=== PATIENT | female | born 1950 | race Caucasian/White ===

== ENCOUNTER 2025-03-07 14:04 | Outpatient (REF) | payer MEDICARE, MEDICAID, SELFPAY ==
--- OUTSIDE RECORDS SUMMARY | 2025-03-07 14:58 | XMS_ITS | Encounter Summary ---
Author Organization [facility] Address [address] [place] [address] Care Team Providers Care V Belt Skiver Name Role Phone Heather Gallardo MD Primary Care Pr ovider Encounter Details Date Type Department Care Team (Latest Contact Info) Description 03/07/2025 1:29 PM EDT Hospital Encounter XRAY - [place] [address] [place] [address] Right hip pain; Sacroiliac pain; Right lumbar pain Social History Tobacco Use Types Packs/Day Years Used Date Smoking Tobacco: Former Cigarettes Q uit: 07/04/1984 Smokeless Tobacco: Never Alcohol Use Standard Drinks/Week Comments Yes 0 (1 standard drink = 0.6 oz pur e alcohol) Housing Instability Answer Date Recorde d Are you worried that in the next 2 months you may not have stable housing? No 10/15/2024 Food Access & Nutrition Answer Date Rec orded Do you have access to a vari ety of food including fruits and vegetables? Yes 10/15/2024 Health Literacy Answer Date Recorded How often do you need to hav e someone help you when you read instructions, pamphlets, or other written material from your doctor or pharmacy? Patient declined 10/15/2024 Caregiver: How often do you need to have someone help you when you read instructions, pamphlets, or other written material from your doctor or pharmacy? Not on file 024 Financial Risk Answer Date Recorded How hard is it for you to pa y for the very basics like food, housing, medical care, and air conditioning / heating? Patient declined 10/15/2024 Transportation Answer Date Recorded Has the lack of transportati on kept you from meetings, work, or from getting things needed for daily living? No 10/15/2024 Has the lack of transportati on kept you from medical appointments or from getting medications? Patient declined 10/15/2024 Social Isolation Answer Date Recorded How often do you feel lonely or isolated from those around you? Patient declined 10/15/2024 Food Risk Answer Date Recorded Within the past 12 months we worried whether our food would run out before we got money to buy more. Never true 10/15/2024 Within the past 12 months th e food we bought just didn't last and we didn't have money to get more. Never true 10/15/2024 Dependent Care Answer Date Recorded Do you need help finding or paying for care for your loved ones. For example, school child care attendant or elderly care for an older adult? Patient declined 10/15/2024 Education Answer Date Recorded Do you think completing more education or training, like finishing a GED, going to college, or learning a trade, would be helpful for you? Patient declined 10/15/2024 Employment and Income Answer Date Recor ded During the last four weeks, have you been actively looking for work? Patient declined 10/15/2024 Living Situation Answer Date Recorded What is your living situation? 1 12/16/2023 Interpersonal Safety Answer Date Record ed Physical Abuse 01/02/2025 Verbal Abuse 01/02/2025 Comments No Sex and Gender Information Value Date Recorded Sex Assigned at Female 09/11/2024 1:22 PM EST Legal Sex Female 2:46 PM EST Gender Identity Female 09/11/2024 1:22 PM EST Sexual Orientation Straight 09/11/2024 1: 22 PM EST documented as of this encounter Plan of Treatment Upcoming Encounters Date Type Department Care Team (Late st Contact Info) Description 03/28/2025 1:40 PM EDT Office Visit Gastroenterology - [place] [address] [facility] [address] [facility] [address] [place] [id number] Lisette Ash PA [address] [place] [address] 04/08/2025 1:30 PM EDT Consult Vascular Surgery - [place] [address] [place] [address] Jaleesa Bella PA [address] [facility] [address] [place] [address] 01/24/2026 1:00 PM EDT Office Visit Endocrinology [facility] [address] [place] [address] Amy Loyd PA [address] [place] [address] Pending Results Name Type Priority Associated Diagnoses Date /Time XR Lumbar Spine 4+ Views Imaging Routine Right hip pain Sacroiliac pain Right lumbar pain 03/07/2025 1:43 PM EDT Scheduled Orders Name Type Priority Associated Diagnoses Orde r Schedule XR Lumbar Spine 4+ Views Imaging Routine Right hip pain Sacroiliac pain Right lumbar pain Once for 1 Occurrences starting 03/07/2025 until 03/07/2025 documented as of this encounter Visit Diagnoses Diagnosis Right hip pain Pain in joint, pelvic region and thigh Sacroiliac pain Disorders of sacrum Right lumbar pain Lumbago documented in this encounter Additional Health Concerns Assessment Noted Time PHQ-9 Depression Total Score: 0 03/06/20 25 6:34 PM EDT documented as of this encounter Care Teams V Belt Skiver Relationship Specialty Start Date End Date Heather Gallardo MD [address] [place], [place] PCP - General Internal Medicine 05/17/22 documented as of this encounter
--- OUTSIDE RECORDS SUMMARY | 2025-03-07 14:58 | XMS_ITS | Clinical Summary ---
Author Organization [address] [facility] Address [address] [place] [address] Phone Care Team Providers Care Sales Representative [employer] Name Role Phone Heather Martinez MD Primary Care Pr ovider Allergies Active Allergy Reactions Criticality Noted Date Comments Adhesive Wound 02/11/2010 Tape Adhesive Tape-Silicones Unknown 01/29/2025 Balsam [place] Oil Unknown 01/29/2025 Mold Shortness of breath,Wheezing,Heada esthela,Swelling High 10/07/2014 Other Reaction(s): Numbness, tingling or swelling of the lips, tongue or mouth Nickel Itching,Rash 11/04/2016 Nickel/Metal Trace Metals Unknown 01/29/2025 Medications cholecalciferol (VITAMIN D-3) 50 mcg (2,000 unit) capsule Take 1 Capsule by mouth daily. 06/14/20 24 Active dronedarone (Multaq) 400 mg tablet TAKE 1 TABLET BY MOUTH TWICE DAILY WITH THE MORNING AND EVENING MEAL 04/19/20 24 Active atorvastatin (LIPITOR) 20 mg tablet TAKE 2 TABLETS BY MOUTH AT BEDTIME 05/02/20 24 Active albuterol HFA (PROAIR HFA ; PROVENTIL HFA ; VENTOLIN HFA) 90 mcg/actuation inhaler Inhale 2 Puffs into the lungs every 4 hours as needed for Cough, Wheezing or Shortness of Breath. 10/13/20 23 Active pantoprazole (PROTONIX) 40 mg EC tablet Take 1 tablet (40 mg total) by mouth 1 (one) time each day. Do not crush, chew, or split. 90 tablet 3 10/08/20 24 Active metoprolol succinate (TOPROL-XL) 25 mg 24 hr tabletIndications :Paroxysmal atrial fibrillation (CMS/HCC V24, CMS/HCC V28) Take 2 tablets (50 mg total) by mouth 1 (one) time each day. 10/15/20 24 Active furosemide (LASIX) 20 mg tabletIndications :Varicose veins of bilateral lower extremities with other complications Take 1 tablet (20 mg total) by mouth 1 (one) time each day if needed (leg swelling). 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 90 tablet 3 11/03/19 25 Active acetaminophen (TYLENOL) 500 mg tablet Take 2 tablets (1,000 mg total) by mouth every 8 (eight) hours. 30 tablet 01/04/20 25 Active apixaban (ELIQUIS) 2.5 mg tablet Take 1 tablet (2.5 mg total) by mouth 2 (two) times a day. Active semaglutide (Wegovy) 2.4 mg/0.75 mL injection penIndications:Cl ass 2 obesity with body mass index (BMI) of 38.0 to 38.9 in adult, unspecified obesity type, unspecified whether serious comorbidity present INJECT 2.4 MG SUBCUTANEOUSLY ONE TIME PER WEEK 3 mL 3 01/29/20 25 Active methylPREDNISolon e (MEDROL DOSPAK) 4 mg tablet Take as directed on package. 21 tablet 03/07/20 25 025 Active cyclobenzaprine (FLEXERIL) 5 mg tablet Take 1 tablet (5 mg total) by mouth at bedtime as needed for muscle spasms. 30 tablet 03/07/20 25 025 Active senna-docusate (PERICOLACE) 8.6-50 mg per tabletIndications :Constipation, unspecified constipation type Take 1 tablet by mouth 1 (one) time each day for 10 days. 10 each 02/06/20 25 025 Active Problems Problem Noted Date Diagnosed Date Bartholin gland cyst 11/15/2024 Pancreatic cyst 10/15/2024 Overview (10/15/2024): Incidental 0.5 cm cystic lesion of the pancreatic head Other constipation 10/15/2024 Assessment & Plan (10/15/2024 9:40 PM EST): Advised to continue colace and resume senna Orders: senna (SENOKOT) 8.6 mg tablet; Take 1 tablet (8.6 mg total) by mouth at bedtime. Chronic superficial gastritis without bleeding 1 12/16/2023 Assessment & Plan (10/15/2024 9:40 PM EST): Continue pantoprazole 40mg daily Prediabetes 10/15/2024 Assessment & Plan (10/15/2024 9:40 PM EST): Stable. 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 Cardoza describes neck pain and radiation to both arms. It travels from the neck to the trapezius and periscapular region before going into the triceps. Cervical spine x-rays show degenerative changes with bridging osteophytes at C4-5, C5-6, and C6-7. Ms. Cardoza had physical therapy and did not appreciate any relief but she did not have any cervical traction and they did not use a TENS unit. She will try physical therapy again this time with cervical traction and a TENS unit for her occipital neuralgia. She can follow-up with us after the therapy if things do not improve. We will consider an MRI at that time. Assessment & Plan (10/15/2024 9:40 PM EST): She has gabapentin at home. She will try the medication and used the stool softners to help with the constipation Class 2 obesity with body ma ss index (BMI) of 38.0 to 38.9 in adult 01/03/2024 Assessment & Plan (10/15/2024 9:40 PM EST): Continue semaglutdie 2.4mg weekly and follow up with weight management Gallstones 03/23/2023 Overview (08/13/2024): MRI abdomen 03/21/23: Possible cholelithiasis in the contracted gallbladder Assessment & Plan (10/15/2024 9:40 PM EST): We discussed symptoms of symptomatic gallstones/cholecystitis and she is advised to go to the ER if that occurs. For now, she defers evaluation by surgery Vitamin D deficiency 03/02/2023 Assessment & Plan (10/15/2024 9:40 PM EST): Continue vitamin D 2000 U Left lumbar radiculitis 12/10/2021 Overview (08/13/2024): Being followed with [facility] Lichen simplex chronicus 03/05/2021 Overview (08/13/2024): Last Assessment & Plan: Explained could repeat biopsy, but not likely necessary. Will treat with OTC hydrocortisone prn. Avoid irritants. Call if worsening, can consider more potent steroid. Elevated testosterone level 10/26/2019 Calcification of coronary artery 05/01/2019 Anxiety 04/04/2019 Overview (08/13/2024): Last Assessment & Plan: I offered resources, but she currently declines. She will bring up with Dr. Zelaya. 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 She has a plan to leave if necessary and denies fear for her life. She has support. She declines additional services. Ground glass opacity present on imaging of lung 03/21/2019 Paroxysmal atrial fibrillation (CMS/HCC V24, CMS /[facility] V28) 11/16/2018 Assessment & Plan (10/15/2024 9:40 PM EST): Continue Multaq 400mg BID and apixaban 5 mg twice daily Continue follow up with [facility] cardiology . Echo was done in January, EF 60 to 65% Varicose veins of bilateral lower extremities with other complications 09/01/2018 Assessment & Plan (10/15/2024 9:40 PM EST): Advised to use use lasix daily as needed more consistently for the leg swelling Will like treatment and is referred to Vascular Surgery Orders: furosemide (LASIX) 20 mg tablet; Take 1 tablet (20 mg total) by mouth 1 (one) time each day if needed (leg swelling). Ambulatory referral to Vascular Surgery; Future Obstructive sleep apnea 07/17/2018 Overview (08/13/2024): mild AHI 9 with sleep related hypoxia SMS Home Polysomnogram: Date 07/11/2018; AHI 9, Unclassified apneas 0; Obstructive apneas 7; Central apneas 0; Mixed apneas 0; hypopneas 63; average oxygen saturation 90% (lowest 82% with saturations <88% for 5% or more of study) [facility] Polysomnogram treatment study. Date . SE 50 % SM 58 %; spent 14 % of the study in REM. On CPAP @ 10; RDI 1.7 (AHI 1.7), Central apneas 1; Obstructive apneas 0; Mixed apneas 0; hypopneas 3; RERAs 0; and, average oxygen saturation was 93%. For the entire study, PLMs ~180. - Obstructive Sleep Apnea - mild; mostly hypopneas; with sleep related hypoventilation by 2018 home polysomnogram. Tx study. Assessment & Plan (10/15/2024 9:40 PM EST): Advised to use CPAP nightly to prevent adverse consequences of uncontrolled ROSALVA. She will use this with her dehumidifier Pruritus ani 10/04/2017 External hemorrhoids with complication 7 Hyperlipidemia 10/14/2014 Assessment & Plan (10/15/2024 9:40 PM EST): Stable. continue atorvastatin 40 mg nightly. 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 Gramajo - at [facility] Assessment & Plan (10/15/2024 9:40 PM EST): Continue levothyroxine 88mcg daily Enlarged thyroid 07/04/2013 Assessment & Plan (10/15/2024 9:40 PM EST): Orders: US Head Neck Soft Tissue; Future PHN (postherpetic neuralgia) 09/09/2011 Neck pain 04/07/2011 Occipital neuralgia 04/07/2011 Overview (08/13/2024): Last Assessment & Plan: Ms. Cardoza describes a long history of right sided occipital headaches radiating over the top of her head into the right eye. I was able to reproduce her pain with palpation of the right skull base. She would like to go for an occipital nerve block. I also gave her a prescripion for physical therapy incluiing crvical traction. She will follow up wih us afterward if she's not improving. Degenerative arthritis of cervical spine 011 Lumbago 07/15/2010 Sacroiliac pain 07/15/2010 Hip pain 02/11/2010 Knee pain 02/11/2010 Overview (08/13/2024): Seeing Dr. 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 stable Orders: Basic metabolic panel; Future Resolved Problems Problem Noted Date Diagnosed Date Resolved Date Complex renal cyst 03/23/2023 Overview (08/13/2024): MRI abdomen 03/21/23: CONCLUSIONS: Lesion of concern in the midpole of the right kidney probably represent mildly complex cyst with some proteinaceous contents and septation. It could be followed ultrasonographically in 3/6 months. Additional cysts in the right kidney. Elevated bilirubin 05/17/2022 H pylori ulcer 10/26/2019 10/15/2024 Morbid obesity with BMI of 4 0.0-44.9, adult ([facility] V24, [facility] V28) 04/04/2019 10/15/2024 Encounters Date Type Department Care Team Description 03/07/2025 1:29 PM EDT Hospital Encounter [address] [phone] Right hip pain; Sacroiliac pain; Right lumbar pain 03/07/2025 1:28 PM EDT Hospital Encounter [address] [phone] Right hip pain; Sacroiliac pain; Right lumbar pain 03/07/2025 1:00 PM EDT Office Visit Adult Medicine [address] [phone] Shivani Jain PA Right hip pain (Primary Dx); Sacroiliac pain; Right lumbar pain 03/06/2025 Nurse Triage Adult [address] [phone] Rachel Aguilar RN 03/06/2025 Nurse Triage Adult Medicine [address] [phone] Heather Martinez MD 02/05/[address] [phone] Kaz Soler MD Med Refill 01/29/2025 11:30 AM EDT Office Visit [address] [phone] Kaz Soler MD Vaginal discharge (Primary Dx); Vaginal odor; Postop check 01/29/2025 Telephone Adult Medicine [address] [phone] Heather Martinez MD 01/28/[address] [phone] Bina Morales, pasteurizing machine operator Only 01/24/2025 1:30 PM EDT Consult Endocrinology [address] [phone] Amy Loyd PA 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 [41501 (CPT??)] 01/02/2025 6:54 AM EST - 01/03/2025 2:23 PM EST Hospital Encounter [facility] [address] [place] [phone] Kaz Soler MD Bartholin gland cyst Discharge Disposition: Home or Self Care 12/10/2024 11:00 AM EST Office Visit Bariatric Surgery - [place] [address] [place] [phone] Amaury Gomez MD Class 2 obesity with body mass index (BMI) of 38.0 to 38.9 in adult, unspecified obesity type, unspecified whether serious comorbidity present from Last 3 Months Immunizations Name Administration Dates Next Due COVID-19 Seasonal (Novavax) 12yo and older 07/31/2024 Hepatitis B (Oocvwhk-D-Hajpr , Recombivax HB-Adult) 19yo and older 11/15/2001,05/11/2001 Influenza Quadravalent, 0.5m l (Fluad) 65yo and older 10/01/2024 Influenza Quadravalent, 0.5m l (Fluzone High-dose) 65yo and older 08/17/2023 Influenza trivalent, 0.5mL ( Fluad) 65yo and older 07/19/2022,09/30/2021,07/25/2020,08/19,08/31/2018,08/05/2017 Influenza trivalent, 0.5mL, preservative free (Fluarix; FluLaval; Fluzone) ages 6mo and older (Afluria) 3 years and older 08/29/2015 Influenza trivalent, with pr eservative (Fluzone; Afluria) 6mo and older 08/21/2019 Influenza, Unspecified 09/01/2023 PPD Test 04/01/2001 Pneumococcal conjugate 13 va lent (Prevnar 13, PCV13) 2mo and older 07/25/2020 Pneumococcal conjugate 20 va lent (Prevnar 20, PCV 20) 2mo and older 04/19/2023 Pneumococcal polysaccharide 23 valent (Pneumovax 23) 2yo and older 08/21/2013 Td Tetanus diptheria (Tdvax) 7yo and older 05/01/2019 Tdap Tetanus diptheria acell ular pertussis (Boostrix; Adacel) 7yo and older 07/27/2013 Surgical History Surgery Date Site/Laterality Comments ROTATOR CUFF REPAIR 10/31/1999 PROCEDURE: HISTORICAL ROTATOR CUFF REPAIR; COMMENT: roxy 2012Dr. Huggins APPENDECTOMY 10/31/1962 PROCEDURE: ND APPENDECTOMY TONSILLECTOMY 10/31/1965 PROCEDURE: HISTORICAL TONSILLECTOMY OTHER SURGICAL HISTORY 10/31/2003 PROCEDURE: CATHETER, ABLATION BREAST BIOPSY Left PROCEDURE: BX BREAST; PERC NEEDLE CORE W/IMAG GUID; COMMENT: b9 OTHER SURGICAL HISTORY 01/29/2016 PROCEDURE: HISTORICAL VULVA SURGERY; COMMENT: Exam under anesthesia and right vulvar hematoma evacuation at [facility] by Dr. Katina Maradiaga OTHER SURGICAL HISTORY 09/29/2018 PROCEDURE: HISTORICAL VULVA SURGERY; COMMENT: Exam under anesthesia, removal of right vaginal cyst and vulvar biopsy at [facility]. OTHER SURGICAL HISTORY 05/12/2020 PROCEDURE: HISTORICAL VULVA SURGERY; COMMENT: Excision of left multilobular vaginal cyst and hematoma ayt [facility] by Dr. Pura Yung. OTHER SURGICAL HISTORY 2014 PROCEDURE: ND REPAIR RECTOCELE SEPARATE PROCEDURE; COMMENT: Rectocele repair at [facility] by Dr. Dixon Vizcaino ABLATION OF DYSRHYTHMIC FOCUS BARTHOLIN GLAND CYST EXCISION 01/02/2025 Right Excision of right Bartholin's gland and mass. Medical History Medical History Date Comments Atrial fibrillation ([facility] V24, [facility] V28) DX:Atrial fibrillation (HCC) ; COMMENT: Dr. Nassar/ [facility] Sleep apnea DX:Sleep apnea Ground glass opacity present on imaging of lung 06/09/2020 DX:Ground glass opacity pres ent on imaging of lung; COMMENT: Being monitored by pulm Elevated bilirubin 05/17/2022 DX:Elevated b ilirubin Complex renal cyst 03/23/2023 MRI abdomen : CONCLUSIONS: Lesion of concern in the midpole of the right kidney probably represent mildly complex cyst with some proteinaceous contents and septation. It could be followed ultrasonographically in 3/6 months. Additional cysts in the right kidney. H pylori ulcer 10/26/2019 Morbid obesity with BMI of 40.0-44.9, adult ([facility] V24, [facility] V28) 04/04/2019 PONV (postoperative nausea a nd vomiting) Hypothyroidism Family History Medical History Relation Name Comments Lung cancer Father Breast cancer Neg Hx Colon cancer Neg Hx Ovarian cancer Neg Hx Relation Name Status Comments Brother Diabetes Father (Age 70) Lung Ca, C OPD, smoker Maternal Grandmother [place], str madelyn x3 Mother Alive Sister Diabetes Social History Tobacco Use Types Packs/Day Years Used Date Smoking Tobacco: Former Cigarettes Q uit: 07/04/1984 Smokeless Tobacco: Never Tobacco Cessation:Counseling Given: Not Answered Alcohol Use Standard Drinks/Week Comments Yes 0 [...] care for your loved ones. For example, child study team director or elderly care for an older adult? [...] Orientation Straight 09/11/2024 1: 22 PM EST Obstetrics History Last Filed Vital Signs Vital Sign Reading Time Taken Comments Blood Pressure 130/74 03/07/2025 1:03 PM EDT Pulse 78 03/07/2025 1:03 PM EDT Temperature 36.9 ??C (98.4 ??F) 03/07/2025 1:03 PM ED T Respiratory Rate 18 03/07/2025 1:03 PM EDT Oxygen Saturation 98% 01/24/2025 1:27 PM EDT Inhaled Oxygen Concentration - - Weight 105 kg (231 lb) 03/07/2025 1:03 PM EDT Height 165.1 cm (5' 5 ) 03/07/2025 1:03 PM EDT Body Mass Index 38.44 03/07/2025 1:03 PM EDT Plan of Treatment Upcoming Encounters Date Type Department Care Team (Late st Contact Info) Description 03/28/2025 1:40 PM EDT Office Visit Gastroenterology - [place] 175 [facility] [address] [facility] [address] [place] [phone] Lisette Ash PA [address] [facility] [address] [place] [address] 04/08/2025 1:30 PM EDT Consult Vascular Surgery - [place] 300 [facility] [address] [place] [phone] Jaleesa Bella PA 300 [facility] [address] [place] [address] 01/24/2026 1:00 PM EDT Office Visit Endocrinology [address] [phone] Amy Loyd PA [address] [place] [address] Health Maintenance Due Date Last Done Comments Zoster Vaccines (1 of 2) 1969 Hepatitis B Vaccines (3 of 3 - 19+ 3-dose series) 01/10/2002 11/15/2001, 05/11/2001 RSV Immunization Adult Patients (1 - 1-dose 75+ series) 2024 COVID-19 Vaccine (7 - Moderna risk season) 2025 07/31/2024, 06/29/2024, 11/10/2023, Additional history exists Colorectal Cancer Screening: Colonoscopy 04/23/2025 04/23/2020 Medicare Annual Wellness Visit 10/15/2025 10/15/2024 Social Influencers of Health Screening 10/15/2025 10/15/2024 Falls Risk Assessment 01/03/2026 01/03/2025, 024 Hypertension/CHF/CAD Annual BMP Blood Test 01/24/2026 01/24/2025, 01/03/2025, 08/27/2024, Additional history exists Depression Screening 03/06/2026 03/06/2025, 10/13/20 DTaP,Tdap,and Td Vaccines (3 - Td or Tdap) 05/01/2029 05/01/2019, 07/27/2013 Cholesterol Screening (Lipid Panel) 08/27/2029 08/27/2024, 05/13/2023 Osteoporosis Screening (Bone Density Screening) 03/02/2038 03/02/2023 Hepatitis C Screening Completed 09/11/2020 Pneumococcal Vaccine: 50+ Years Completed 04/19/2023, 07/25/2020, 08/21/2013 Breast Cancer Screening Discontinued 04/10/20 24, 04/10/2024, 03/04/2023, Additional history exists Influenza Vaccine Completed 10/02/2024, , 09/01/2023, Additional history exists HIB Vaccines Aged Out No longer eligi ble based on patient's age to complete this topic HPV Vaccines Aged Out No longer eligi ble based on patient's age to complete this topic Hepatitis A Vaccines Aged Out No long er eligible based on patient's age to complete this topic IPV Vaccines Aged Out No longer eligi ble based on patient's age to complete this topic MMR Vaccines Aged Out No longer eligi ble based on patient's age to complete this topic Meningococcal ACWY Vaccine Aged Out N o longer eligible based on patient's age to complete this topic Meningococcal B Vaccine Aged Out No l onger eligible based on patient's age to complete this topic RSV Immunization Patients Under 20 months Aged Out No longer eligible based on patient's age to complete this topic Varicella Vaccines Aged Out No longer eligible based on patient's age to complete this topic Medical Devices Implanted Type Area City Administrator Device Identifier Shelf Expiration Date Model / Serial / Lot Kit Surgiflo W 2000 Units Ster Lyo - Sn/A - [id number] Implanted:Qty: 1 on 01/02/2025 by Kaz Soler MD at 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 BASIC METABOLIC PANEL Routine 01/24/2025 2:05 PM EDT Primary hypertension CBC WITH AUTO DIFFERENTIAL Routine 01/03/2025 5:45 AM EST PHOSPHORUS Routine 01/03/2025 5:45 AM EST MAGNESIUM Routine 01/03/2025 5:45 AM EST BASIC METABOLIC PANEL Routine 01/03/2025 5:45 AM EST CBC AND DIFFERENTIAL Routine 01/03/2025 5:45 AM EST POCT GLUCOSE BLOOD Routine 01/02/2025 9: 25 PM EST TISSUE EXAM Routine 01/02/2025 9:28 AM EST Bartholin gland cyst TH AN LMA(NO CHARGE) Routine 01/02/2025 8:47 AM EST ND EXCISION GLAND/CYST BARTHOLIN'S 01/02/2025 8:31 AM EST Bartholin's gland cyst Perirectal cyst Special Needs REQ'D 12- MINS CBC WITH AUTO DIFFERENTIAL Routine 12/24/2024 9:46 AM EST Bartholin gland cyst Encounter for preoperative examination for general surgical procedure CBC AND DIFFERENTIAL Routine 12/24/2024 9:46 AM EST Bartholin gland cyst Encounter for preoperative examination for general surgical procedure TYPE AND SCREEN Routine 12/24/2024 9:46 AM EST Bartholin gland cyst ECG 12-LEAD Routine 12/24/2024 9:16 AM EST Bartholin gland cyst HM FALLS RISK ASSESSMENT Routine 06/14/2024 STARR SCREENING DIGITAL Routine 04/10/2024 4:35 PM EDT Encounter for screening mammogram for malignant neoplasm of breast HM DEPRESSION SCREENING Routine 10/13/2023 LIPID PANEL Routine 05/13/2023 DXA BONE DENSITY STUDY 1+ SITS AXIAL SKEL Routine 03/02/2023 1:20 PM EDT Encounter for screening for osteoporosis HEPATITIS C SCREENING Routine 09/11/2020 EXTERNAL COLONOSCOPY REPORT 04/23/2020 from Last 3 Months or Most Recently Relevant to Health Maintenance Results * Vaginitis pathogens molecular study (01/29/2025 11:53 AM EDT) Trichomonas vaginalis Negative Negative 01/30/2025 11:12 AM EDT [facility] Gardnerella vaginalis Negative Negative 01/30/2025 11:12 AM EDT [facility] Madelaine Species Negative Negative 11:12 AM EDT [facility] Swab Vaginal structure / Unknown Non-blood Collection / Unknown 01/29/2025 11:53 AM EDT 01/29/2025 2:24 PM EDT Kaz Soler MD LAB MICROBIOLOGY - GENERAL ORDER FANNIE Final Result Performing Organization Address City/[facility]/ZIP Co de Phone Number [facility] [address] [place] [address], [place] [phone] * Thyroid stimulating hormone with reflex to free t4 and free t3 (01/24/2025 2:05 PM EDT) TSH 1.66 0.40 - 4.00 mcIU/mL LAB CHEMISTRY METHOD 01/24/2025 6:11 PM EDT [facility] Blood Venous blood specimen / Unknown Venipuncture / Unknown 01/24/2025 2:05 PM EDT 01/24/2025 2:05 PM EDT Amy AMADOR LAB BLOOD ORDERABLES Final Result Performing Organization Address City/[facility]/ZIP Co de Phone Number [facility] [address] [place] [address], [place] [phone] * Vitamin D 25 hydroxy (01/24/2025 2:05 PM EDT) Vit D, 25-Hydroxy 49.9 30.0 - 80.0 ng/mL LAB CHEMISTRY METHOD 01/24/2025 6:11 PM EDT [facility] Blood Venous blood specimen / Unknown Venipuncture / Unknown 01/24/2025 2:05 PM EDT 01/24/2025 2:05 PM EDT us Amy AMADOR LAB BLOOD ORDERABLES Final Result [facility] [address] [place] [address], * Basic metabolic panel (01/24/2025 2:05 PM EDT) Only the most recent of2 resultswithin the time period is included. Sodium 141 133 - 145 mmol/L LAB CHEMISTRY METHOD 01/24/2025 5:14 PM EDT [facility] Potassium 4.1 3.5 - 5.5 mmol/L LAB CHEMISTRY METHOD 01/24/2025 5:14 PM [facility] Chloride 106 96 - 110 mmol/L LAB CHEMISTRY METHOD 01/24/2025 5:14 PM [facility] CO2 28 21 - 32 mmol/L LAB CHEMISTRY METHOD 01/24/2025 5:14 PM [facility] Anion Gap 7 3 - 11 LAB CHEMISTRY METHOD 01/24/2025 5:14 PM [facility] Glucose 96 70 - 100 mg/dL LAB CHEMISTRY METHOD 01/24/2025 5:14 PM [facility] BUN 12 5 - 25 mg/dL LAB CHEMISTRY METHOD 01/24/2025 5:14 PM [facility] Creatinine 0.82 0.50 - 1.10 mg/dL LAB CHEMISTRY METHOD 01/24/2025 5:14 PM [facility] eGFR 75 >=60 mL/min/1. 73m2 LAB CHEMISTRY METHOD 01/24/2025 5:14 PM [facility] Comment:Calculation based on the??Chronic Kidney Disease Epidemiology Collaboration (CKD-EPI) equation refit??without adjustment for race. BUN/Creatinine Ratio 14.6 LAB CHEMISTRY METHOD 01/24/2025 5:14 PM [facility] Calcium 9.3 8.5 - 10.5 mg/dL LAB CHEMISTRY METHOD 01/24/2025 5:14 PM EDT [facility] Blood Venous blood specimen / Unknown Venipuncture / Unknown 01/24/2025 2:05 PM EDT 01/24/2025 2:05 PM EDT Heather Martinez MD LAB BLOOD ORDERA BLES Final Result [facility] [address] [place] [address], [place] [phone] * CBC auto differential (01/03/2025 5:45 AM EST) Only the most recent of2 resultswithin the time period is included. WBC 8.3 4.8 - 10.8 K/mcL LAB HEMETOLOGY METHOD 01/03/2025 7:34 AM [facility] RBC 3.80 3.80 - 4.80 M/mcL LAB HEMETOLOGY METHOD 01/03/2025 7:34 AM [facility] Hemoglobin 11.6 11.5 - 16.0 g/dL LAB HEMETOLOGY METHOD 01/03/2025 7:34 AM [facility] Hematocrit 35.5 35.0 - 47.0 % LAB HEMETOLOGY METHOD 01/03/2025 7:34 AM [facility] MCV 92.4 79.0 - 98.0 FL LAB HEMETOLOGY METHOD 01/03/2025 7:34 AM [facility] MCH 30.2 27.0 - 32.0 pcg LAB HEMETOLOGY METHOD 01/03/2025 7:34 AM [facility] MCHC 32.7 32.0 - 37.0 g/dL LAB HEMETOLOGY METHOD 01/03/2025 7:34 AM [facility] RDW 12.6 11.0 - 15.0 % LAB HEMETOLOGY METHOD 01/03/2025 7:34 AM [facility] Platelets 215 130 - 400 K/mcL LAB HEMETOLOGY METHOD 01/03/2025 7:34 AM [facility] MPV 9.6 7.0 - 11.0 FL LAB HEMETOLOGY METHOD 01/03/2025 7:34 AM [facility] NRBC 0.0 <1.0 % LAB HEMETOLOGY METHOD 01/03/2025 7:34 AM [facility] NRBC Absolute 0.00 <0.10 K/mcL LAB HEMETOLOGY METHOD 01/03/2025 7:34 AM [facility] Neutrophils Relative 72.6 % LAB HEMETOLOGY METHOD 01/03/2025 7:34 AM [facility] Lymphocytes Relative 19.4 % LAB HEMETOLOGY METHOD 01/03/2025 7:34 AM [facility] Monocytes Relative 7.3 % LAB HEMETOLOGY METHOD 01/03/2025 7:34 AM [facility] Eosinophils Relative 0.1 % LAB HEMETOLOGY METHOD 01/03/2025 7:34 AM [facility] Basophils Relative 0.2 % LAB HEMETOLOGY METHOD 01/03/2025 7:34 AM [facility] Immature Granulocytes Relative 0.4 % LAB HEMETOLOGY METHOD 01/03/2025 7:34 AM [facility] Neutrophils Absolute 6.05 1.50 - 7.00 K/mcL LAB HEMETOLOGY METHOD 01/03/2025 7:34 AM [facility] Lymphocytes Absolute 1.62 1.00 - 5.00 K/mcL LAB HEMETOLOGY METHOD 01/03/2025 7:34 AM [facility] Monocytes Absolute 0.61 0.20 - 1.00 K/mcL LAB HEMETOLOGY METHOD 01/03/2025 7:34 AM EST [facility] Eosinophils Absolute 0.01 0.00 - 0.50 K/[facility] LAB HEMETOLOGY METHOD 01/03/2025 7:34 AM EST [facility] Basophils Absolute 0.02 0.00 - 0.20 K/[facility] LAB HEMETOLOGY METHOD 01/03/2025 7:34 AM EST [facility] Immature Granulocytes Absolute 0.03 0.00 - 0.03 K/[facility] LAB HEMETOLOGY METHOD 01/03/2025 7:34 AM EST [facility] Blood Venous blood specimen / Unknown Venipuncture / Unknown 01/03/2025 5:45 AM EST 01/03/2025 6:55 AM EST Imelda AMADOR LAB BLOOD ORDERABLES Final Re sult Performing Organization Address City/[facility]/ZIP Co de Phone Number [facility] [address] [place] [address], [place] [phone] * (ABNORMAL) Phosphorus (01/03/2025 5:45 AM EST) Phosphorus 4.7(H) 2.5 - 4.5 mg/dL LAB CHEMISTRY METHOD 01/03/2025 7:37 AM EST [facility] Blood Venous blood specimen / Unknown Venipuncture / Unknown 01/03/2025 5:45 AM EST 01/03/2025 6:54 AM EST Imelda AMADOR LAB BLOOD ORDERABLES Final Re sult [facility] [address] [place] [address], [place] [phone] * Magnesium (01/03/2025 5:45 AM EST) Magnesium 2.5 1.9 - 2.6 mg/dL LAB CHEMISTRY METHOD 01/03/2025 7:37 AM EST [facility] Blood Venous blood specimen / Unknown Venipuncture / Unknown 01/03/2025 5:45 AM EST 01/03/2025 6:54 AM EST Imelda AMADOR LAB BLOOD ORDERABLES Final Re sult Performing Organization Address City/[facility]/ZIP Co de Phone Number [facility] [address] [place] [address], [place] [phone] * (ABNORMAL) POCT Glucose, blood (01/02/2025 9:25 PM EST) Glucose POCT 103(H) 70 - 100 mg/dL 01/02/2025 9:26 PM [facility] POCT Comment RN Notified 01/02/2025 9:26 PM [facility] Blood Capillary blood specimen / Unknown 01/02/2025 9:25 PM EST 01/02/2025 9:27 PM EST Kaz Soler MD LAB POINT OF CARE TE ST DOCKED DEVICE UNSOLICITED RESULTS Final Result Performing Organization Address [facility]/ZIP Co de Phone Number [facility] [address] [place] [address], [place] [phone] * Tissue exam (01/02/2025 9:28 AM EST) Final Diagnosis Right vulva, Bartholin gland excision: Benign Bartholin gland with benign hemorrhagic cyst 01/03/2025 10:52 AM EST [facility] Comment The cystic cavity lacks an epithelial lining and is surrounded by hemosiderin-laden macrophages, hematoidin deposition, and chronic inflammatory cells. No neoplasm is identified. 01/03/2025 10:52 AM EST [facility] Gross Description A. Vulva, bartholin's gland mass and cyst (right vulva): Labeled Bartholin vulva . Received in formalin, wrapped in Telfa are two portions of soft to rubbery disrupted haynes-red to purple tissue with minimal attached blood clot measuring 0.7 cm in greatest diameter and 2.9 x 2.0 x 1.8 cm. The cut surfaces of the larger tissue are haynes-white and fibrotic with a 1.1 cm in greatest diameter cyst which contains red-brown grumous material. Due to the disruption, the margins are not inked. A telesales representative section from each portion of tissue is submitted in one cassette, two pieces (smaller tissue in toto). TS 01/03/2025 10:52 AM EST [facility] Disclaimer Unless otherwise specified, all tissue is 10% NB formalin fixed and paraffin embedded. 01/03/2025 10:52 AM EST [facility] Tissue Vulval structure / Unknown 01/02/2025 9:28 AM EST 01/02/2025 11:58 AM EST us Kaz Soler MD LAB PATHOLOGY ORDERABLES Final R esult [facility] [address] [place] [address], * TH AN LMA(NO CHARGE) (01/02/2025 8:47 AM EST) Narrative Flaquita Katz CRNA - 01/02/2025 8:47 AM EST Flaquita Katz CRNA ? 01/02/2025 ??8:48 AM General Information and Staff Patient location during procedure: OR Performed by: Flaquita Katz CRNA Authorized by: Gloria Celeste MD ?? Intubation Airway not difficult Urgency: elective Final Airway Details Number of attempts at approach: 1 Ventilation between attempts: none Number of other approaches attempted: 0Final airway type: LMA Indications and Patient Condition Indications for airway management: anesthesia Spontaneous ventilation: present Sedation level: Yes Preoxygenated: yes Soft Tissue Damage: No Dentition Unchanged: Yes Patient position: neutral MILS not maintained throughout Mask difficulty assessment: 0 - not attempted Start Time: 01/02/2025 8:39 AMStop Time: 01/02/2025 8:39 AM Gloria Celeste MD ANESTHESIA ORDERABLES Fin al Result * Type and screen (12/24/2024 9:46 AM EST) ABO Group A 12/24/2024 11:27 AM EST [facility] Rh Type Positive 12/24/2024 11:27 AM EST [facility] Antibody Screen Negative 12/24/2024 11:27 AM EST [facility] Blood Venous blood specimen / Unknown Venipuncture / Unknown 12/24/2024 9:46 AM EST 12/24/2024 9:53 AM EST Kaz Soler MD LAB BLOOD BANK TEST ORDERABLES F inal Result Performing Organization Address City/[facility]/ZIP Co de Phone Number [facility] [address] [place] [address], * ECG 12 lead (12/24/2024 9:16 AM EST) Pathologist [facility] Ventricular Rate ECG 63 BPM GEMUSE Atrial Rate 63 BPM GEMUSE P-R Interval 202 ms GEMUSE QRS Duration 88 ms GEMUSE Q-T Interval 408 ms GEMUSE QTc 417 ms GEMUSE P Wave [place] 76 degrees GEMUSE R [place] 61 degrees GEMUSE T [place] 50 degrees GEMUSE ECG Interpretation Normal sinus rhythm Normal ECG No previous ECGs available Confirmed by ADAN GROSS ([id number]) on 12/25/2024 8:29:39 AM GEMUSE 12/24/2024 9:16 AM EST 12/25/2024 8:29 AM EST Kaz Soler MD ECG ORDERABLES Final Result GEMUSE * Falls Risk Assessment (06/14/2024) Pathologist [facility] Falls Risk Assessment Abstracted Erin Maravilla MD HEALTH MAINTENANCE Final Result * STARR SCREENING DIGITAL (04/10/2024 4:35 PM EDT) Anatomical Region Laterality Modality Mammography 04/10/2024 2:50 PM EDT Narrative 04/10/2024 4:35 PM EDT [facility] Diagnostic Imaging Department [address] [place] [address] Patient: ??LUANA CARDOZA ?/Age/Sex: 1950 - 73 - F Unit#: ??[id number] ? Location/Status: ??SPDIMAM/REG CLI ? Mnemonic/Ordering Site: ??DIGSC/SPMAM Ordering Physician: ??HEATHER MARTINEZ Starr Screening Digital - 04/10/24 - 1520 Report Status:Signed EXAM: Starr Screening Digital EXAM DATE AND TIME: 04/10/2024 3:21 PM HISTORY: ??Screening. Previous bilateral breast biopsies, pathology benign. Sister had breast carcinoma at age 69. COMPARISON: ??03/04/23, 03/02/22, 01/12/21 TECHNIQUE: Bilateral digital breast tomosynthesis was performed in the CC and MLO projections. Computer aided detection with [employer] 3D 3.1 was employed. TISSUE DENSITY: a. The breasts are almost entirely fatty. FINDINGS: No suspicious masses, grouped microcalcifications, or areas of architectural distortion are seen. Scattered subcentimeter circumscribed nodules are without significant change. There are rare benign calcifications. Biopsy markers are again seen in the left breast. The skin and vascularity are unremarkable. IMPRESSION: Stable mammographic appearance of the breasts. ??No evidence of malignancy is seen. A negative mammogram in the presence of a clinically suspicious palpable abnormality does not preclude the possibility of malignancy or alter the indications for biopsy. BI-RADS: ??Category 2: Benign RECOMMENDATION(S): 1: Routine screening mammogram BILATERAL in 1 year. Dictating Physician: ??MINI MORENO MD Electronically Signed by: ??MINI MORENO MD Dic Date/Time: ??04/10/24 1634 Sign date/Time: ??04/10/24 1635 Procedure Note Mini Moreno MD - 08/15/2024 [facility] Diagnostic Imaging Department [address] [place] [address] Patient: LUANA CARDOZA /Age/Sex: 1950 - 73 - F Unit#: [id number] [facility]Ordering Site: [facility] Ordering Physician: HEATHER MARTINEZ [facility] Screening Digital - 04/10/24 - 1520 Report Status:Signed EXAM: [facility] Screening Digital EXAM DATE AND TIME: 04/10/2024 3:21 PM HISTORY: Screening. Previous bilateral breast biopsies, pathologybenign. Sister had breast carcinoma at age 69. COMPARISON: 03/04/23, 03/02/22, 01/12/21 TECHNIQUE: Bilateral digital breast tomosynthesis was performed in the CCand MLO projections. Computer aided detection with [employer] 3D 3.1was employed. TISSUE DENSITY: a. The breasts are almost entirely fatty. FINDINGS: No suspicious masses, grouped microcalcifications, or areas ofarchitectural distortion are seen. Scattered subcentimeter circumscribed nodules arewithout significant change. There are rare benign calcifications. Biopsy markersare again seen in the left breast. The skin and vascularity are unremarkable. IMPRESSION: Stable mammographic appearance of the breasts. No evidence of malignancyis seen. A negative mammogram in the presence of a clinically suspicious palpable abnormality does not preclude the possibility of malignancy or alter the indications for biopsy. BI-RADS: Category 2: Benign RECOMMENDATION(S): 1: Routine screening mammogram BILATERAL in 1 year. Dictating Physician: MINI MORENO MD Electronically Signed by: MINI MORENO MD Dic Date/Time: 04/10/24 1634 Sign date/Time: 04/10/24 1635 Heather Martinez MD IMG BI PROCEDURE S Final Result * Depression Screening (10/13/2023) Depression Screening Abstracted Historical Provider HEALTH MAINTENANCE Final Result * Lipid panel (05/13/2023) LDL/HDL Ratio 3 0 - 4 Triglycerides 93 0 - 150 mg/dL Cholesterol 164 0 - 200 mg/dL HDL 63 >=40 mg/dL LDL Cholesterol 83 0 - 100 mg/dL Blood Venous blood specimen / Unknown Historical Provider LAB BLOOD ORDERABLES Anna l Result * DXA BONE DENSITY STUDY 1+ SITS AXIAL SKEL (03/02/2023 1:20 PM EDT) Anatomical Region Laterality Modality Bone Densitometr y 02/14/2023 1:39 PM EDT Narrative 03/03/2023 4:33 PM EDT BONE DENSITY ? Lumbar Spine T-score is +2.4 ?? (SD relative to 20-29 y/o adult) Z-score is +4.7 ??(SD relative to age matched peers) This is normal by criteria defined by the WHO. Left Hip T-score is -0.4 Z-score is +1.6 This is normal by criteria defined by the WHO. Comparison exam(s): significant decrease in bone density of ??hip when compared to most recent bone density examination ?? Confidence level is +/-95%. Impression: Based on the World Health Organization criteria, Luana Cardoza should be classified as having normal bone density. The [facility] Department of Internal Medicine recommends using National Osteoporosis Foundation (NOF) guidelines in treatment decisions related to osteoporosis. NOF guidelines suggest considering treatment for postmenopausal women and men aged 50 or older presenting with the following: History of hip or vertebral fracture. T-score less than or equal to -2.5 (DXA) at the femoral neck, total hip, or spine, after appropriate evaluation to exclude secondary causes. Low bone mass (T-score between -1.0 and -2.5 at the femoral neck or spine) AND a 10-year probability of a hip fracture greater than or equal to 3% OR a 10-year probability of a major osteoporosis-related fracture greater than or equal to 20% based on the [place]-adapted WHO algorithm Please note that all treatment decisions require clinical judgment and consideration of individual patient factors, including patient preferences, co-morbidities, previous drug use, risk factors not captured in the FRAX model (e.g., frailty, falls, vitamin D deficiency, increased bone turnover, interval significant decline in bone density) and possible under- or over-estimation of fracture risk by FRAX. Procedure Note Maddy Martin MD - 12/05/2023 BONE DENSITY Lumbar Spine T-score is +2.4 (SD relative to 20-29 y/o adult) Z-score is +4.7 (SD relative to age matched peers) This is normal by criteria defined by the WHO. Left Hip T-score is -0.4 Z-score is +1.6 This is normal by criteria defined by the WHO. Comparison exam(s): significant decrease in bone density of hip whencompared to most recent bone density examination Confidence level is +/-95%. Impression: Based on the World Health Organization criteria, Luana Cardoza should beclassified as having normal bone density. The [facility] Department of Internal Medicine recommendsusing National Osteoporosis Foundation (NOF) guidelines in treatmentdecisions related to osteoporosis. NOF guidelines suggest consideringtreatment for postmenopausal women and men aged 50 or older presentingwith the following: History of hip or vertebral fracture. T-score less than or equal to -2.5 (DXA) at the femoral neck, total hip,or spine, after appropriate evaluation to exclude secondary causes. Low bone mass (T-score between -1.0 and -2.5 at the femoral neck or spine)AND a 10-year probability of a hip fracture greater than or equal to 3% ORa 10-year probability of a major osteoporosis-related fracture greaterthan or equal to 20% based on the [place]-adapted WHO algorithm Please note that all treatment decisions require clinical judgment andconsideration of individual patient factors, including patientpreferences, co-morbidities, previous drug use, risk factors not capturedin the FRAX model (e.g., frailty, falls, vitamin D deficiency, increasedbone turnover, interval significant decline in bone density) and possibleunder- or over-estimation of fracture risk by FRAX. Lisa Duran MD IMG DXA PROCEDURES Final Result * Hepatitis C Screening (09/11/2020) Pathologist [facility] Hepatitis C Screening Abstracted Historical Provider HEALTH MAINTENANCE Final Result * External Colonoscopy Report (04/23/2020) Anatomical Region Laterality Modality Endoscopy Provider [facility]~PROCEDURE ORDERABLES Final Result from Last 3 Months or Most Recently Relevant to Health Maintenance Insurance MEDICAID - [place] MEDICARE Advance Directives * Full Code - Default (Latest Code Status on File) Date Activated Date Inactivated Comments 01/02/2025 1:13 PM 01/03/2025 4:34 PM This is order is used when code status has not been discussed with the patient, or code status is otherwise unknown/unconfirmed To update the patient's code status, place a code status order. Do not modify or discontinue any currently active code status orders. Care Teams Sales Representative [employer] Relationship Specialty Start Date End Date Heahter Martinez MD [address] [facility], [place] PCP - General Internal Medicine 05/17/22
--- OUTSIDE RECORDS SUMMARY | 2025-03-07 14:58 | XMS_ITS | Encounter Summary ---
Author Organization [facility] Address [address] [place] [address] Care Team Providers Care Test Eng Name Role Phone Heather Gallardo MD Primary Care Pr ovider Encounter Details Date Type Department Care Team (Latest Contact Info) Description 03/07/2025 1:28 PM EDT Hospital Encounter XRAY - [place] [address] [place] [address] Right hip pain; Sacroiliac pain; Right lumbar [...] for your loved ones. For example, child care director or elderly care for an older [...] 1:40 PM EDT Office Visit Gastroenterology - [place] [address] [facility] [address] [place] [id number] Lisette Ash PA [address] [place] [address] 04/08/2025 1:30 PM EDT Consult Vascular Surgery - [place] [address] [place] [address] Jaleesa Bella PA [address] [facility] [address] [place] [address] 01/24/2026 1:00 PM EDT Office Visit Endocrinology [facility] [address] [place] [address] Amy Loyd PA [address] [place] [address] Pending Results Name Type Priority Associated Diagnoses Date /Time XR Hip 2-3 Views Right Imaging Routine Right hip pain Sacroiliac pain Right lumbar pain 03/07/2025 1:43 PM EDT Scheduled Orders Name Type Priority Associated Diagnoses Orde r Schedule XR Hip 2-3 Views Right Imaging Routine Right hip pain Sacroiliac pain [...] documented as of this encounter Care Teams Test Eng Relationship Specialty Start Date End Date Heather Gallardo MD [address] [place], [place] PCP - General Internal Medicine 05/17/22 documented as of this encounter
--- OUTSIDE RECORDS SUMMARY | 2025-03-07 14:58 | XMS_ITS | Patient Health Record ---
Author Organization [facility] Address [address] [place] [address] Care Team Providers Care Employee Benefits Manager Name Role Phone Marisela Zelaya-Quinten Primary Care Provider Davon Argueta Unavailable [phone] Allergies Allergen (clinical drug ingredient) Drug/Non Drug Allergy documented on EMR Reaction Allergy Type Onset Date Status Balsam Barbie-Lafferty Oil Unknown Drug Allergy Active Adhesive Bandages Unknown Drug Allergy Active Metals metals (uncoded) Unknown Allergy Act bhargav Reason For Referral No Information Medications Medication SIG (Take, Route, Frequency, Duration) Notes Start Date End Date Status Flecainide Acetate 100 MG 1 Orally BID Active Simvastatin 40 MG 1 tablet in the even ing Orally Once a day Active Eliquis 5 MG 1 Orally BID Acti ve Metoprolol Succinate 25 MG 1 Orally QD Active Levothyroxine Sodium 88 MCG 1 tablet on an empty stomach in the morning Orally Once a day Active Immunizations Vaccine Route Administration Date Status Comme nts Influenza Unknown 08/10/2018 Administered Influenza Unknown 07/31/2019 Administered Social History Alcohol Screen Question Answer Notes Did you have a drink contain ing alcohol in the past year? Yes How often did you have a dri nk containing alcohol in the past year? 2 to 4 times a month (2 points) How many drinks did you have on a typical day when you were drinking in the past year? 1 or 2 drinks (0 point) How often did you have 6 or more drinks on one occasion in the past year? Never (0 point) Points 2 Interpretation Negative Section Notes: Nonsmoker; 2-3 glasses of wi ne 1-2x/week Nonsmoker; 2-3 glasses of wi ne 1-2x/week Nonsmoker; 2-3 glasses of wi ne 1-2x/week Nonsmoker; 2-3 glasses of wi ne 1-2x/week Problems Problem Type SNOMED Code ICD Code Onset Dates Problem Status W/U Status Risk Notes Problem 507382883 Encounter for screening for malignant neoplasm of colon (Z12.11) Active confirmed Problem 292131134 History of adenomatous polyp of colon (Z86.010) Active confirmed Problem 88586649 Other hemorrhoid s (K64.8) Active confirmed Problem 465717120282926 Preprocedural examination (Z01.818) Active confirmed Problem 12823690 Rectal bleed (K62.5) Active confirmed Problem 374668608 Anticoagulant long-term use (Z79.01) Active confirmed Encounters Encounter Location Date Provider Diagnosis [facility] [address] [place] [address] 02/25/2025 Davon Black Plan Of Treatment Pending Test Test Name Order Date CBC w DIFF 10/29/2014 CBC w DIFF 09/05/2017 CLOSTRIDIUM DIFF TOXIN A&B (C DIFF) 10/02 STOOL WBC 10/29/2014 CELIAC PANEL #10 10/29/2014 GIARDIA AG, STOOL EIA 10/29/2014 OVA & PARASITES (O&P) 10/29/2014 CULTURE, STOOL 10/29/2014 Future Test Test Name Order Date COLONOSCOPY 03/05/2014 COLONOSCOPY 02/27/2020 Insurance Providers Payer Name Payer Address Payer Phone Subscriber Number Group Number Insured Name Patient Relationship to Insured Coverage Start Date Coverage End Date MEDICARE OF [place] [address] [place] [id number] TELMA BARRIENTOS Self - patient is the insured MEDICAID OF [facility] [address] [place] [address] [id number] TELMA BARRIENTOS Self - patient is the insured Medical (General) History Medical History History ICD Code Atrial fibrillation-s/p cardiac ablation , but relapsed Colonoscopy 11/18/2008-1 tub ular adenoma removed; had previous colonoscopy [place] [address] 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 Herbie guzman in 01/2014 Rectocele repair-Dr. Vizcaino approx 2015 Hemorrhoid surgery in 09/[address] Alexandro [address]
--- OUTSIDE RECORDS SUMMARY | 2025-03-07 14:58 | XMS_ITS ---
Author Organization [facility] Address [address] [place] [phone] Care Team Providers Care Forensic Science Examiner Name Role Phone Bc Zelaya Primary Care Provider Unavailab Davon Tavera [phone] REASON FOR VISIT Patient presents today for a recall colonoscopy Encounters Encounter Location Date Provider Diagnosis [facility] [address] [facility] [address] [place] [phone] 02/27/2025 Davon Black Plan Of Treatment No Information Progress Notes * TELMA BARRIENTOS DDOB: [birth year] (74 yo F)Acc No.[id number]:02/27/2025 Progress Notes Patient:?TELMA BARRIENTOS Provider:?Davon Black MD :1950???Age:74 Y???Sex:Female D ate:02/27/2025 Address:[address] [place], [place] [id number] Pcp:Bc Zelaya Subjective: * Chief Complaints: * ???1. Patient presents today for a recall colonoscopy. * Medical History:? Objective: * Vitals:? Assessment: Plan: * Treatment: * * The named appointment provid er may or may not be the originator of this progress note, and it is not deemed complete until electronically signed by the appointment provider. Sign off status: Pending * Provider:?Davon Black MD Date:? 025 Generated for Printi ng/Faxing/eTransmitting on:?03/07/2025 02:58 PM EDT
--- OUTSIDE RECORDS SUMMARY | 2025-03-07 14:58 | XMS_ITS ---
Author Organization [facility] Address [address] [place] [address] Care Team Providers Care Circuit Manager Name Role Phone Bc Zelaya Primary Care Provider Unavailab Davon Tavera [phone] REASON FOR VISIT cancel OV Encounters Encounter Location Date Provider Diagnosis [facility] [address] [place] [phone] 02/25/2025 Davon Black Plan Of Treatment No Information Progress Notes * TELMA BARRIENTOS DDOB: [birth year] (74 yo F)Acc No.[id number]:02/25/2025 Patient:?FELICIA BARRIENTOSNE Oniel :1950???Age:74 Y???Sex:Female Address:[address] [place] [id number] * true * Date:? Generated for Jennifer bennett/Irasema/eTransmitting on:?03/07/2025 02:58 PM EDT
--- OUTSIDE RECORDS SUMMARY | 2025-03-07 14:59 | XMS_ITS | Encounter Summary ---
Author Organization [facility] Address [address] [place] [address] Care Team Providers Care General Office Assistant Name Role Phone Heather Gallardo MD Primary Care Pr ovider Reason for Visit * Reason Onset Date Comments Med Refill 02/05/2025 Encounter Details Date Type Department Care Team (Late st Contact Info) Description 02/05/2025 Telephone Breast Care Center [facility] [address] [place] [phone] Kaz Soler MD [address] [place] [address] Med Refill Social History Tobacco Use Types Packs/Day Years [...] care for your loved ones. For example, early childhood associate teacher or elderly care for an older adult? [...] PM EST documented as of this encounter Progress Notes * Mark Murphy - 02/05/2025 11:02 AM EDT Patient called in stating that she needs a refill of her medication Senexon-s 8.6 MG 50 tabs sent to her pharmacy. Patient is kylah to her last pill. documented in this encounter Plan of Treatment Upcoming Encounters Date Type Department Care Team (Late st Contact Info) Description 03/28/2025 1:40 PM EDT Office Visit Gastroenterology - [place] [address] [place] [address] Lisette Ash PA [address] [place] [address] 04/08/2025 1:30 PM EDT Consult Vascular Surgery - [place] [address] [place] [address] Jaleesa Bella PA [address] [facility] [address] [place] [address] 01/24/2026 1:00 PM EDT Office Visit Endocrinology - [place] [address] [place] [address] Amy oLyd PA [address] [place] [address] documented as of this encounter Visit Diagnoses Not on filedocumented in this encounter Additional Health Concerns Assessment Noted Time PHQ-9 Depression Total Score: 0 10/15/20 24 2:01 PM EST documented as of this encounter Care Teams General Office Assistant Relationship Specialty Start Date End Date Heather Gallardo MD [address] [place], [place] PCP - General Internal Medicine 05/17/22 documented as of this encounter
--- OUTSIDE RECORDS SUMMARY | 2025-03-07 14:59 | XMS_ITS | Encounter Summary ---
Author Organization [facility] Address [address] [place] [address] Care Team Providers Care Edi Manager Name Role Phone Heather Gallardo MD Primary Care Pr ovider Encounter Details Date Type Department Care Team (Late st Contact Info) Description 03/06/2025 Nurse Triage Adult Medicine [facility] [address] [place] [address] Heather Gallardo MD [address] [place] [address] Social History Tobacco Use Types Packs/Day Years [...] for your loved ones. For example, child welfare worker or elderly care for an older adult? [...] as of this encounter Progress Notes * Rachel Aguilar RN - 03/06/2025 4:56 PM EDT Pt triaged and given an appointment in a separate encounter. documented in this encounter Plan of Treatment Upcoming Encounters Date Type Department Care Team (Late st Contact Info) Description 03/28/2025 1:40 PM EDT Office Visit Gastroenterology - [place] [address] [place] [phone] Lisette Ash PA [address] [place] [address] 04/08/2025 1:30 PM EDT Consult Vascular Surgery - [place] [address] [place] [address] Jaleesa Bella PA [address] [place] [address] 01/24/2026 1:00 PM EDT Office Visit Endocrinology [address] [phone] Amy Loyd PA [address] [place] [address] documented as of this encounter Visit Diagnoses Not on filedocumented in this encounter Additional Health Concerns Assessment Noted Time PHQ-9 Depression Total Score: 0 03/06/20 25 6:34 PM EDT documented as of this encounter Care Teams Edi Manager Relationship Specialty Start Date End Date Heather Gallardo MD [address] [place], [place] PCP - General Internal Medicine 05/17/22 documented as of this encounter
--- OUTSIDE RECORDS SUMMARY | 2025-03-07 14:59 | XMS_ITS | Encounter Summary ---
Author Organization [facility] Address [address] [place] [address] Care Team Providers Care Lofter Name Role Phone Heather Gallardo MD Primary Care Pr ovider Encounter Details Date Type Department Care Team (Late st Contact Info) Description 03/06/2025 Nurse Triage Adult Medicine [address] [phone] Rachel Aguilar, [place] Social History Tobacco Use Types Packs/Day Years [...] for your loved ones. For example, child development teacher or elderly care for an older [...] Notes * Rachel Aguilar RN - 03/06/2025 4:58 PM EDT An appointment was made for her to be seen in the office tomorrow at 1:00 pm with Shivani Arndt in agreement with this plan. Reason for Disposition [1] MODERATE pain (e.g., interferes with normal activities, limping) AND [2] present > 3 days Answer Assessment - Initial Assessment Questions 1. LOCATION and RADIATION: Where is the pain located? Right hip pain 2. QUALITY: What does the pain feel like? (e.g., sharp, dull, aching, burning) She describes the pain as deep sharp and constant 3. SEVERITY: How bad is the pain? What does it keep you from doing? (Scale 1-10; or mild, moderate, severe) - MILD (1-3): Doesn't interfere with normal activities. - MODERATE (4-7): Interferes with normal activities (e.g., work or school) or awakens from sleep, limping. - SEVERE (8-10): Excruciating pain, unable to do any normal activities, unable to walk. She rates the pain as 7/10 at rest 4. ONSET: When did the pain start? Does it come and go, or is it there all the time? She states the pain started 5 days ago. 5. WORK OR EXERCISE: Has there been any recent work or exercise that involved this part of the body? She states she has been trying to be more mobile and more active. 6. CAUSE: What do you think is causing the hip pain? She has had chronic pain in her right hip for 5 years and has had injection in her SI joint. 7. AGGRAVATING FACTORS: What makes the hip pain worse? (e.g., walking, climbing stairs, running) She states the pain worsens when sitting, lying down or walking 8. OTHER SYMPTOMS: Do you have any other symptoms? (e.g., back pain, pain shooting down leg, fever, rash) No other symptoms Protocols used: Hip Pain-A-AH documented in this encounter Plan of Treatment Upcoming Encounters Date Type Department Care Team (Late st Contact Info) Description 03/28/2025 1:40 PM EDT Office Visit Gastroenterology - [place] [address] [facility] [address] [place] [address] Lisette Ash PA [address] [facility] [address] [place] [address] 04/08/2025 1:30 PM EDT Consult Vascular Surgery - [place] [address] [place] [phone] Jaleesa Bella PA [address] [place] [address] 01/24/2026 1:00 PM EDT Office Visit Endocrinology - [place] [address] [place] [address] Amy Loyd PA [address] [place] [address] documented as of this encounter Visit Diagnoses Not on filedocumented in this encounter Additional Health Concerns Assessment Noted Time PHQ-9 Depression Total Score: 0 03/06/20 25 6:34 PM EDT documented as of this encounter Care Teams Lofter Relationship Specialty Start Date End Date Heather Gallardo MD [address] [facility], [place] PCP - General Internal Medicine 05/17/22 documented as of this encounter
== END 2025-03-07 14:05 | disposition home or self-care (01) ==
LOC: HO.SH 14:04
PROVIDERS: Visit Provider Family Medicine
DX: Z01.118 Encounter for examination of ears and hearing with other abnormal findings (principal); H90.3 Sensorineural hearing loss, bilateral
CPT/HCPCS: 92557; 92567